=== PATIENT | male | born 1945 | race Caucasian/White ===

== ENCOUNTER 2016-08-20 12:43 | Outpatient (CLI) | payer OTHER ==
[~2016-08-20] VITALS: Ht 180.3 cm; Wt 93.9 kg
[2016-08-20 12:53] VITALS: BP 142/72
[2016-08-20] MEDS ORDERED: ACAR50TA3 PO (13:09)
--- NOTE | 2016-08-20 13:48 | Diagnostic Imaging Report ---
INDICATION: Preop brachytherapy. EXAMINATION: PA and lateral chest. 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 The heart size and pulmonary vascularity are normal. The lungs are clear. There are no effusions or pneumothoraces. IMPRESSION: Negative chest. Dictated by: Dictated on workstation # [id number]
[2016-08-20 13:55] LABS: BILIRUBIN,URINE NEGATIVE (NEGATIVE); KETONES,URINE NEGATIVE (NEGATIVE); LEUKOCYTE ESTERASE ,URINE 3+ (NEGATIVE); NITRITE,URINE NEGATIVE (NEGATIVE); PH,URINE 5 (5-9); PROTEIN,URINE NEGATIVE (NEGATIVE); UROBILINOGEN,URINE NORMAL (NORMAL)
[2016-08-20] MEDS ORDERED: CYCL10TA9 PO (14:02)
[2016-08-20] MEDS ORDERED: LISI-556 PO (14:02)
[2016-08-20] MEDS ORDERED: ALLO100T PO (14:02)
[2016-08-20] MEDS ORDERED: RANI-515 PO (14:02)
[2016-08-20] MEDS ORDERED: CALC-227 PO (14:02)
[2016-08-20] MEDS ORDERED: ATOR80TA76 PO (14:02)
[2016-08-20] MEDS ORDERED: ASPI-808 PO (14:02)
[2016-08-20] MEDS ORDERED: OMEG100032 PO (14:02)
[2016-08-20] MEDS ORDERED: GLIP10TA13 PO (14:02)
[2016-08-20] MEDS ORDERED: ASCO500T6 PO (14:02)
[2016-08-20] MEDS ORDERED: HYDR-3812 PO (14:02)
[2016-08-20] MEDS ORDERED: CARV12.53 PO (14:02)
[2016-08-20 14:16] LABS: SQUAMOUS EPITHELIAL CELL,UR 0-2 /HPF
[2016-08-27] MEDS ORDERED: CIPR-226 PO (11:58)
[2016-08-27] MEDS ORDERED: ACET1TAB43 PO (11:59)
== END 2016-08-20 13:45 | disposition home or self-care (01) ==
LOC: PREOP 12:43
PROVIDERS: ATTEND Radiology Radiation Oncology
DX: Z01.818 Encounter for other preprocedural examination (principal); Z11.2 Encounter for screening for other bacterial diseases; C61 Malignant neoplasm of prostate
CPT/HCPCS: 71020; 81000; 87081; 93005

== ENCOUNTER 2016-08-27 10:38 | Day surgery (SDC) | payer OTHER ==
[~2016-08-27] VITALS: Ht 180.3 cm; Wt 93.9 kg
[2016-08-27 10:38] VITALS: BP 136/76
[~2016-08-27 10:38] MED LIST: ACAR50TA3 PO; ALLO100T PO; ASCO500T6 PO; ASPI-808 PO; ATOR80TA76 PO; CALC-227 PO; CARV12.53 PO; CYCL10TA9 PO; GLIP10TA13 PO; HYDR-3812 PO; LISI-556 PO; OMEG100032 PO; RANI-515 PO
[2016-08-27] MEDS ORDERED: CATHETER FLUSH 10 ML SYR IV PRN (11:30)
[2016-08-27] MEDS ORDERED: LEVOFLOXACIN 500 MG/D5W 100 ML (PRE-MIX) IV ONE (11:30)
--- NOTE | 2016-08-27 11:44 | Progress Note-Pre Operative ---
Pre-Operative Progress Note H&P Reviewed The H&P was reviewed, patient examined and no changes noted. Date Seen by Provider: Aug 27, 2016 Time Seen by Provider: 11:43 Date H&P Reviewed: Aug 27, 2016 Time H&P Reviewed: 11:43 Pre-Operative Diagnosis: Prostate cancer cT1c, PSA 14.4, [place] 9 JONNATHAN SINCLAIR MD Aug 27, 2016 11:44
--- NOTE | 2016-08-27 11:53 | Discharge Inst-Simple/Standard ---
Discharge Inst-Standard Discharge Medications New, Converted or Re-Newed RX: RX Given to Pt/Family Patient Instructions/Follow Up Plan of Care/Instructions/FU: 1) Keep follow up appointment with Dr. Caban in September. 2) Keep follow up appointment at [facility] post implant sim. Activity as Tolerated: Yes Discharge Diet: No Restrictions Other Inst to Patient Patient to remove ordaz Tuesday 08/29 in JONNATHAN Del Valle MD Aug 27, 2016 11:53
[2016-08-27] MEDS ORDERED: CIPR-226 PO (11:58)
[2016-08-27] MEDS ORDERED: ACET1TAB43 PO (11:59)
[2016-08-27] MEDS ORDERED: fentaNYL INJECTION 100 MCG/2 ML AMP ONE (12:06)
[2016-08-27] MEDS ORDERED: LACTATED RINGERS 1,000 ML IV ONE ×2 (12:23→14:21)
[2016-08-27] MEDS ORDERED: LIDOCAINE JELLY 2% (XYLOCAINE) 5 ML TUBE ONE (12:23)
[2016-08-27] MEDS ORDERED: ONDANSETRON 4 MG/2 ML (SDV) Z0FRAN ONE (12:23)
[2016-08-27] MEDS ORDERED: proPOfol 200 MG/20 ML (DIPRIVAN) VIAL IV ONE (12:23)
[2016-08-27] MEDS ORDERED: LIDOCAINE PF 2% 5 ML (XYLOCAINE) VIAL ONE (12:23)
[2016-08-27] MEDS ORDERED: ROCURONIUM 50 MG/5 ML (ZEMURON) VIAL IV ONE (12:23)
[2016-08-27] MEDS ORDERED: MIDAZOLAM 2 MG/2 ML (VERSED) VIAL ONE (12:24)
[2016-08-27] MEDS: LACTATED RINGERS 1,000 ML IV PRN ×2 (12:30→13:30)
[2016-08-27] MEDS ORDERED: SEVOFLURANE (ULTANE) 15 ML INHAL SOLN ONE (14:21)
[2016-08-27] MEDS ORDERED: MEPERIDINE (DEMEROL) INJ 50 MG/ML IVP PRN (14:45)
[2016-08-27] MEDS ORDERED: ONDANSETRON 4 MG/2 ML (SDV) Z0FRAN IVP PRN (14:45)
--- NOTE | 2016-08-27 14:52 | Progress Note-Post Operative ---
Post-Operative Progess Note Surgeon (s)/Office Assistance (s) Surgeon JONNATHAN SINCLAIR MD Office Assistance: Vargas MARX MD Pre-Operative Diagnosis Prostate cancer cT1c, PSA 14.4, [place] 9 Post-Operative Diagnosis Same as pre-op Procedure & Operative Findings Date of Procedure 08/27/16 Procedure Performed/Findings Prostate volume 31.8 cc Anesthesia Type General Estimated Blood Loss Estimated blood loss (mL): Minimal Specimens/Packing Specimens Removed None Packing: N/A JONNATHAN SINCLAIR MD Aug 27, 2016 14:52
[2016-08-27] MEDS: morphine INJ 10 MG/ML 1ML (SYR OR VIAL) IVP PRN ×2 (14:57→15:02)
[2016-08-27 15:40] VITALS: BP 130/67
[2016-08-27 16:15] VITALS: BP 134/59
[2016-08-27 17:20] VITALS: BP 132/65
[2016-08-27 17:30] VITALS: BP 132/65
--- NOTE | 2016-08-27 17:33 | Diagnostic Imaging Report ---
EXAMINATION: Intraoperative radiograph of the pelvis. INDICATION: Prostate cancer. TECHNIQUE: 12 seconds of fluoroscopy time is utilized. 35 cc of Omnipaque 300 is also used. IMPRESSION: Image provided demonstrates contrast in the urinary bladder with a Braga catheter. There are multiple fiducial markers that project predominantly below the silhouette of the contrast filled bladder in the expected region of the prostate. Dictated by: Dictated on workstation # [id number]
[2016-08-27] MEDS ORDERED: BACITRACIN OINTMENT 28 GM TUBE TOP SCH (21:00)
== END 2016-08-27 17:30 | disposition home or self-care (01) ==
LOC: SDC 10:38
PROVIDERS: ATTEND Radiology Radiation Oncology
DX: C61 Malignant neoplasm of prostate (principal); I25.10 Atherosclerotic heart disease of native coronary artery without angina pectoris; Z95.1 Presence of aortocoronary bypass graft; I42.9 Cardiomyopathy, unspecified; I25.2 Old myocardial infarction; E11.9 Type 2 diabetes mellitus without complications; I10 Essential (primary) hypertension; E78.5 Hyperlipidemia, unspecified; K21.9 Gastro-esophageal reflux disease without esophagitis; F32.9 Major depressive disorder, single episode, unspecified; Z95.5 Presence of coronary angioplasty implant and graft; Z79.899 Other long term (current) drug therapy; Z87.891 Personal history of nicotine dependence
CPT/HCPCS: 0438T; 55875; 76965; 77290; 77318; 77332; 77336; 77470; 77778; 82962

== ENCOUNTER 2016-09-24 13:22 | Outpatient (RCR) | payer OTHER ==
[~2016-09-24 13:22] MED LIST changes: +ACET1TAB43 PO; +CIPR-226 PO
[2016-09-24 14:30] LABS: CREATININE SERUM 1.3 MG/DL (0.60-1.30)
== END 2016-10-14 | disposition home or self-care (01) ==
LOC: ONC 13:22
PROVIDERS: ATTEND Radiology Radiation Oncology
DX: C61 Malignant neoplasm of prostate (principal)
CPT/HCPCS: 36415; 76873; 77290; 82565; 84520; 99215

== ENCOUNTER 2016-11-10 08:25 | Outpatient (RCR) | payer OTHER | END 2016-11-15 | LOC: ONC 08:25 | PROVIDERS: ATTEND Radiology Radiation Oncology | DX: C61 Malignant neoplasm of prostate (principal) | CPT/HCPCS: 77295; 77336 ==